=== PATIENT | female | born 1990 | race Caucasian/White ===

== ENCOUNTER 2020-02-11 22:24 | Inpatient (IN) | payer OTHER ==
[~2020-02-11] VITALS: Ht 170.2 cm; Wt 97.7 kg
[2020-02-11] MEDS ORDERED: QVAR REDIHALE10.6 G3 (22:50)
[2020-02-11 22:51] LABS: BASOPHILS ABSOLUTE AUTO 0.03 K/mm3 (0.00-0.23); BASOPHILS PERCENT AUTO 0 % (0-2); EOSINOPHILS ABSOLUTE AUTO 0.08 K/mm3 (0.00-0.68); EOSINOPHILS PERCENT AUTO 1 % (0-6); Hemoglobin 12.6 g/dL (11.5-16.0); IMMATURE GRAN ABSOLUTE AUTO 0.02 K/mm3 (0.00-0.10); IMMATURE GRAN PERCENT AUTO 0 % (0-1); LYMPHOCYTES ABSOLUTE AUTO 1.63 K/mm3 (0.84-5.20); LYMPHOCYTES PERCENT AUTO 19 % (21-46); MONOCYTES PERCENT AUTO 7 % (4-13); Mean Corpuscular HGB 28.1 pg (26.0-34.0); Mean Corpuscular HGB Conc 31.5 g/dL (31.5-36.5); Mean Corpuscular Volume 89 fL (80-100); Mean Platelet Volume 10.2 fL (9.1-12.4); NEUTROPHILS ABSOLUTE AUTO 6.24 K/mm3 (1.96-9.15); NEUTROPHILS PERCENT AUTO 73 % (41-73); Platelet Count 251 K/mm3 (150-400); RDW Coefficient Variation 14.8 % (11.7-14.2); RDW Standard Deviation 48.6 fL (35.1-46.3); Red Blood Cell Count 4.48 M/mm3 (3.80-5.20)
[2020-02-11] MEDS ORDERED: EUTHYROX125 MCG (22:51)
[2020-02-13 05:47] LABS: Hematocrit 34.3 % (33.0-51.0); Hemoglobin 11.1 g/dL (11.5-16.0); Mean Corpuscular HGB 28.4 pg (26.0-34.0); Mean Corpuscular HGB Conc 32.4 g/dL (31.5-36.5); Mean Corpuscular Volume 88 fL (80-100); Platelet Count 182 K/mm3 (150-400); RDW Coefficient Variation 14.8 % (11.7-14.2); RDW Standard Deviation 47.3 fL (35.1-46.3); Red Blood Cell Count 3.91 M/mm3 (3.80-5.20); White Blood Cell Count 9.21 K/mm3 (4.00-11.30)
--- NOTE | 2020-02-13 09:23 | NUR ---
RN ROUNDED TO HELP W/ . PT STATES SHE BREASTFED OLDER CHILD FOR 2 MONTHS AND STOPPED BECAUSE MILK SUPPLY DECREASED, THAT CHILD WAS GIVEN SEVERAL BOTTLES AND PT STATES SHE DOESN'T THINK SHE HAD BABY TO BREAST MUCH SHE SHOULD HAVE AND NB REFUSED TO LATCH. PT HAS HISTORY OF PCOS. RN INSTRUCTED PT TO OFFER NB THE BREAST EVERY 2-3 HOURS. INSTRUCT/DEMO WIDENING LATCH, CORRECT POSITIONING, HAND EXPRESSION OF COLOSTRUM, AND NIPPLE SHAPE AFTER FEEDS. PT VERBALIZED UNDERSTANDING, DENIES ANY FURTHER QUESTIONS OR CONCERNS. FURTHER SUPPORT OFFERED IF PT DESIRES.
== END 2020-02-13 15:35 | disposition home or self-care (01) | DRG 807 ==
LOC: OBS 22:24 → NUR 22:36 → BC 23:49
PROVIDERS: ADMIT Advanced Practice Midwife
PROC: 10E0XZZ Delivery of Products of Conception, External Approach (ICD-10-PCS; principal; 2020-02-12)
PROC: 00HU33Z Insertion of Infusion Device into Spinal Canal, Percutaneous Approach (ICD-10-PCS; 2020-02-12)
PROC: 3E0R3BZ Introduction of Anesthetic Agent into Spinal Canal, Percutaneous Approach (ICD-10-PCS; 2020-02-12)
DX: O48.0 Post-term pregnancy (principal); Z37.0 Single live birth; O99.824 Streptococcus B carrier state complicating childbirth; Z3A.40 40 weeks gestation of pregnancy; O99.214 Obesity complicating childbirth; E66.9 Obesity, unspecified; O71.82 Other specified trauma to perineum and vulva; O99.284 Endocrine, nutritional and metabolic diseases complicating childbirth; E03.9 Hypothyroidism, unspecified
CPT/HCPCS: 36415; 51702; 85025; 85027; 85460; 86850; 86900; 86901; 96372; J0290; J2001; J2210; J2590; J2791; J3010; J7120; U0004

== ENCOUNTER → 2024-05-11 | Outpatient (CLI) | payer BC ==
[~2024-05-11] MED LIST: EUTHYROX125 MCG; QVAR REDIHALE10.6 G3
[2024-05-11 15:35] LABS: BASOPHILS ABSOLUTE AUTO 0.03 K/mm3 (0.00-0.23); BASOPHILS PERCENT AUTO 0 % (0-2); EOSINOPHILS ABSOLUTE AUTO 0.08 K/mm3 (0.00-0.68); EOSINOPHILS PERCENT AUTO 1 % (0-6); Hematocrit 34.6 % (33.0-51.0); Hemoglobin 11.2 g/dL (11.5-16.0); IMMATURE GRAN ABSOLUTE AUTO 0.05 K/mm3 (0.00-0.10); IMMATURE GRAN PERCENT AUTO 1 % (0-1); LYMPHOCYTES ABSOLUTE AUTO 1.17 K/mm3 (0.84-5.20); LYMPHOCYTES PERCENT AUTO 14 % (21-46); MONOCYTES PERCENT AUTO 5 % (4-13); Mean Corpuscular HGB 29.3 pg (26.0-34.0); Mean Corpuscular HGB Conc 32.4 g/dL (31.5-36.5); Mean Corpuscular Volume 91 fL (80-100); Mean Platelet Volume 9.7 fL (9.1-12.4); NEUTROPHILS ABSOLUTE AUTO 6.49 K/mm3 (1.96-9.15); NEUTROPHILS PERCENT AUTO 79 % (41-73); Platelet Count 274 K/mm3 (150-400); RDW Coefficient Variation 14.7 % (11.7-14.2); RDW Standard Deviation 48.7 fL (35.1-46.3); Red Blood Cell Count 3.82 M/mm3 (3.80-5.20); White Blood Cell Count 8.22 K/mm3 (4.00-11.30)
== END | disposition home or self-care (01) ==
LOC: LAB 14:47 → LAB SHORT 14:47
PROVIDERS: Advanced Practice Midwife
DX: Z34.93 Encounter for supervision of normal pregnancy, unspecified, third trimester (principal)
CPT/HCPCS: 82950; 85025

== ENCOUNTER 2024-07-26 18:55 | Inpatient (IN) | payer BC ==
[~2024-07-26] VITALS: Ht 170.2 cm; Wt 101.8 kg
[2024-07-26] MEDS ORDERED: ePHEDrine Sulfate 50 MG/ML 1ML Injection XX PRN (19:45)
[2024-07-26] MEDS ORDERED: OXYTOCIN/RINGER'S LACTATE 500 ML IV SCH (19:45)
[2024-07-26] MEDS ORDERED: Carboprost Tromethamine 250 MCG/ML 1ML Amp IM PRN (19:45)
[2024-07-26] MEDS ORDERED: Tranexamic Acid 1,000 MG in NS 100 ML IV SCH (19:45)
[2024-07-26] MEDS ORDERED: Misoprostol 200 MCG Tab BC PRN (19:45)
[2024-07-26] MEDS ORDERED: Oxytocin 10 Unit / ML Vial IM PRN (19:45)
[2024-07-26] MEDS ORDERED: Misoprostol 200 MCG Tab PR PRN (19:45)
[2024-07-26] MEDS ORDERED: FentaNYL 2mcg/ml-Bup 0.1% Epd 250 ML EPI PRN (19:45)
[2024-07-26] MEDS ORDERED: Lactated Ringer's 1,000 ML IV PRN ×4 (19:45→19:50)
[2024-07-26] MEDS ORDERED: OXYTOCIN/RINGER'S LACTATE 500 ML IV PRN (19:45)
[2024-07-26] MEDS ORDERED: Methylergonovine Maleate 0.2MG / ML 1ML Amp IM PRN (19:45)
[2024-07-26] MEDS ORDERED: Acetaminophen 500 MG Tab PO PRN (19:55)
[2024-07-26] MEDS ORDERED: Calcium Carbonate 500 MG Tab Chew PO PRN (19:55)
[2024-07-26] MEDS ORDERED: Ondansetron HCl 2 MG / ML 2ML Vial IV PRN (19:55)
[2024-07-26] MEDS ORDERED: Misoprostol 25 MCG Tab PO SCH (20:00)
[2024-07-26 20:38] LABS: BASOPHILS ABSOLUTE AUTO 0.02 K/mm3 (0.00-0.23); BASOPHILS PERCENT AUTO 0 % (0-2); EOSINOPHILS ABSOLUTE AUTO 0.01 K/mm3 (0.00-0.68); EOSINOPHILS PERCENT AUTO 0 % (0-6); Hematocrit 35.2 % (33.0-51.0); Hemoglobin 11.5 g/dL (11.5-16.0); IMMATURE GRAN ABSOLUTE AUTO 0.09 K/mm3 (0.00-0.10); IMMATURE GRAN PERCENT AUTO 1 % (0-1); LYMPHOCYTES ABSOLUTE AUTO 0.64 K/mm3 (0.84-5.20); LYMPHOCYTES PERCENT AUTO 6 % (21-46); MONOCYTES ABSOLUTE AUTO 0.64 K/mm3 (0.16-1.47); MONOCYTES PERCENT AUTO 6 % (4-13); Mean Corpuscular HGB 28.6 pg (26.0-34.0); Mean Corpuscular HGB Conc 32.7 g/dL (31.5-36.5); Mean Corpuscular Volume 88 fL (80-100); Mean Platelet Volume 9.9 fL (9.1-12.4); NEUTROPHILS ABSOLUTE AUTO 9.25 K/mm3 (1.96-9.15); NEUTROPHILS PERCENT AUTO 87 % (41-73); Platelet Count 199 K/mm3 (150-400); RDW Coefficient Variation 15.8 % (11.7-14.2); RDW Standard Deviation 50.9 fL (35.1-46.3); Red Blood Cell Count 4.02 M/mm3 (3.80-5.20); White Blood Cell Count 10.65 K/mm3 (4.00-11.30)
[2024-07-26] MEDS ORDERED: Zolpidem Tartrate 5 MG Tab PO PRN (20:55)
[2024-07-26] MEDS ORDERED: Misoprostol 25 MCG Tab VAG PRN (20:55)
[2024-07-26] MEDS ORDERED: DiphenhydrAMINE HCl 50 MG Cap PO PRN (21:00)
[2024-07-26 21:06] VITALS: BP 121/75
[2024-07-26 22:20] VITALS: BP 123/66
[2024-07-26] MEDS ORDERED: Famotidine 20 MG Tab PO SCH (22:25)
[2024-07-26] MEDS ORDERED: Penicillin G Potassium 5,000,000 UNITS in NS 250 ML IV ONE (22:35)
[2024-07-26] MEDS ORDERED: Penicillin G Potassium 2,500,000 UNITS in Dextrose 5% 100 ML IV SCH (23:00)
[2024-07-27] VITALS (43 sets, daily range): BP systolic 91–152; BP diastolic 53–91
[2024-07-27] MEDS ORDERED: Penicillin G Potassium 2,500,000 UNITS in Dextrose 5% 100 ML IV SCH (03:00)
[2024-07-27] MEDS ORDERED: Famotidine 20 MG Tab PO SCH (09:00)
[2024-07-27] MEDS ORDERED: FentaNYL Citrate 50 MCG/ML 2 ML Injection IV PRN (12:15)
[2024-07-27] MEDS ORDERED: Misoprostol 100 MCG Tab PO PRN (16:05)
[2024-07-27] MEDS ORDERED: Methylergonovine Maleate 0.2MG / ML 1ML Amp IM PRN (16:05)
[2024-07-27] MEDS ORDERED: Lactated Ringer's 1,000 ML IV SCH (16:05)
[2024-07-27] MEDS ORDERED: Rho(D) Immune Globulin 300 MCG / SYR IM PRN (16:05)
[2024-07-27] MEDS ORDERED: Witch Hazel/Glycerin PADS TOP PRN (16:10)
[2024-07-27] MEDS ORDERED: Lanolin Cream TOP PRN (16:10)
[2024-07-27] MEDS ORDERED: Acetaminophen 325 MG TABLET PO PRN (16:10)
[2024-07-27] MEDS ORDERED: Ketorolac Tromethamine 30mg Vial IV PRN (16:10)
[2024-07-27] MEDS ORDERED: OxyCODONE 5 mg/Acetamin 325 mg TABLET PO PRN (16:10)
[2024-07-27] MEDS ORDERED: Ibuprofen 400 MG Tab PO PRN (16:10)
[2024-07-27] MEDS ORDERED: Docusate Sodium 100 MG Cap PO PRN (16:15)
[2024-07-27] MEDS ORDERED: OXYTOCIN/RINGER'S LACTATE 500 ML IV SCH (16:15)
[2024-07-27] MEDS ORDERED: Benzocaine Topical Anesthetic Spray 60GM TOP PRN (16:15)
[2024-07-28 00:47] VITALS: BP 118/70
[2024-07-28] MEDS ORDERED: Loperamide HCl 2 MG Cap PO PRN (04:15)
[2024-07-28 04:39] VITALS: BP 132/81
[2024-07-28 07:36] VITALS: BP 114/74
[2024-07-28 07:55] LABS: Hematocrit 35.5 % (33.0-51.0); Hemoglobin 11.7 g/dL (11.5-16.0); Mean Corpuscular HGB 28.7 pg (26.0-34.0); Mean Corpuscular Volume 87 fL (80-100); Mean Platelet Volume 10.1 fL (9.1-12.4); Platelet Count 192 K/mm3 (150-400); RDW Coefficient Variation 15.8 % (11.7-14.2); RDW Standard Deviation 50.2 fL (35.1-46.3); Red Blood Cell Count 4.07 M/mm3 (3.80-5.20)
[2024-07-28] MEDS ORDERED: Prenatal Vit/FE Fumarate/FA 1 Tab PO SCH (09:00)
[2024-07-28 12:09] VITALS: BP 117/72
[2024-07-28 16:30] VITALS: BP 109/77
[2024-07-29 17:17] LABS: HEPATITIS C AB CIA INTERP Negative (Negative); HEPATITIS C ANTIBODY CIA INDEX 0.07 IV
== END 2024-07-28 18:20 | disposition home or self-care (01) | DRG 807 ==
LOC: OBS 18:55 → BC 18:55 → OBS 19:21 → BC 19:23
PROVIDERS: ADMIT Advanced Practice Midwife
PROC: 10E0XZZ Delivery of Products of Conception, External Approach (ICD-10-PCS; principal; 2024-07-27)
PROC: 10907ZC Drainage of Amniotic Fluid, Therapeutic from Products of Conception, Via Natural or Artificial Opening (ICD-10-PCS; 2024-07-27)
PROC: 00HU33Z Insertion of Infusion Device into Spinal Canal, Percutaneous Approach (ICD-10-PCS; 2024-07-27)
PROC: 3E0P7VZ Introduction of Hormone into Female Reproductive, Via Natural or Artificial Opening (ICD-10-PCS; 2024-07-27)
PROC: 3E0R3BZ Introduction of Anesthetic Agent into Spinal Canal, Percutaneous Approach (ICD-10-PCS; 2024-07-27)
DX: O64.9XX0 Obstructed labor due to malposition and malpresentation, unspecified, not applicable or unspecified (principal); Z37.0 Single live birth; O99.824 Streptococcus B carrier state complicating childbirth; Z3A.39 39 weeks gestation of pregnancy
CPT/HCPCS: 36415; 51702; 85025; 85027; 85460; 86803; 86850; 86870; 86900; 86901; 86922; A9270; J1885; J2405; J2540; J2590; J2791; J3010; J7050; J7120